=== PATIENT | female | born 1970 | race Caucasian/White ===

== ENCOUNTER → 2019-07-26 | Outpatient (CLI) | payer OTHER ==
--- NOTE | 2019-07-26 12:58 | KCIC ---
CERVICAL SPINE WO CONTRAST History: Cervical spondylosis. Bilateral upper extremity numbness. Technique: Multiplanar, multi sequential noncontrast MR imaging was performed of the cervical spine. Comparison: None Findings: Minimal grade 1 anterolisthesis C7 on T1, T2 on T3 and T3 on T4. Normal vertebral body height. No fracture. No pathologic signal abnormality within the cervical spinal cord. C2-C3: No canal or neuroforaminal narrowing. C3-C4: No canal or neuroforaminal narrowing. C4-C5: Small posterior disc protrusion. No canal narrowing. Uncovertebral and facet arthropathy. Minimal bilateral neuroforaminal narrowing. C5-C6: Posterior disc osteophyte complex. Mild canal narrowing. Cord flattening. Uncovertebral and facet arthropathy. Severe bilateral neuroforaminal narrowing. C6-C7: Posterior disc osteophyte complex. Mild canal narrowing. Cord flattening. Uncovertebral and facet arthropathy. Severe bilateral neural foraminal narrowing. C7-T1: Anterolisthesis. Moderate facet arthropathy. No canal narrowing. Mild bilateral neural foraminal narrowing. Impression: 1. Moderate multilevel cervical spondylosis contributing to mild canal narrowing and cord flattening C5-C6 and C6-C7. 2. Severe bilateral C5-C6 and C6-C7 neural foraminal narrowing. Electronically signed by: Dinesh Kenney DO (07/26/2019 12:55 PM) [id number]
== END | disposition home or self-care (01) ==
LOC: KCIC MRI 09:32
PROVIDERS: ATTEND Registered Nurse
DX: M47.813 Spondylosis without myelopathy or radiculopathy, cervicothoracic region (principal); M50.221 Other cervical disc displacement at C4-C5 level; M43.13 Spondylolisthesis, cervicothoracic region; M48.03 Spinal stenosis, cervicothoracic region; M25.78 Osteophyte, vertebrae
CPT/HCPCS: 72141